=== PATIENT | male | born 1945 | race Two or more races ===

== ENCOUNTER → 2020-05-21 | Outpatient (CLI) | payer MEDICARE ==
--- NOTE | 2020-05-21 13:03 | XR ---
EXAMINATION TYPE: XR chest 2V DATE OF EXAM: 05/21/2020 COMPARISON: None HISTORY: 75-year-old male MRI clearance, history of open heart surgery TECHNIQUE: Frontal and lateral views FINDINGS: Heart normal size. Median sternotomy wires with post-CABG clips in the mediastinum. No retained epica rdial pacer leads are seen. No consolidation or pleural effusion. Suspect a calcified granuloma at th e posterior right base. IMPRESSION: Median sternotomy and post-CABG changes. No retained epicardial pacer leads seen. Clear for MRI.
== END | disposition home or self-care (01) ==
LOC: RADXRMAIN 11:40
PROVIDERS: ATTEND Orthopaedic Surgery
DX: Z01.818 Encounter for other preprocedural examination (principal); Z95.1 Presence of aortocoronary bypass graft
CPT/HCPCS: 71046

== ENCOUNTER → 2020-07-03 | Outpatient (CLI) | payer MEDICARE, BC ==
[2020-07-03 15:22] LABS: Basophils # (A) 0.1 k/uL (0-0.2); Basophils % (A) 1 %; Eosinophils # (A) 0.1 k/uL (0-0.7); Eosinophils % (A) 2 %; HCT 46.2 % (39.0-53.0); HGB 15.9 gm/dL (13.0-17.5); Lymphocytes # (A) 0.7 k/uL (1.0-4.8); Lymphocytes % (A) 12 %; MCH 29.6 pg (25.0-35.0); MCHC 34.4 g/dL (31.0-37.0); Monocytes # (A) 0.4 k/uL (0-1.0); Monocytes % (A) 7 %; Neutrophils # (A) 4.4 k/uL (1.3-7.7); Neutrophils % (A) 76 %; Platelet Count 173 k/uL (150-450); RBC 5.38 m/uL (4.30-5.90); RDW 13.3 % (11.5-15.5); WBC 5.7 k/uL (3.8-10.6)
[2020-07-03 15:30] LABS: Albumin 3.8 g/dL (3.5-5.0); Calcium 9.2 mg/dL (8.4-10.2); Potassium 5.1 mmol/L (3.5-5.1); Total Bilirubin 0.9 mg/dL (0.2-1.3); Total Protein 6.5 g/dL (6.3-8.2)
[2020-07-03 15:41] LABS: INR 0.9 (<1.2); Partial Thromboplastin Time 22.7 sec (22.0-30.0); Prothrombin Time 10.1 sec (9.0-12.0)
[2020-07-03 16:02] LABS: Appearance,Urine Clear (Clear); Bilirubin,Urine Negative (Negative); Blood,Urine Negative (Negative); Color,Urine Yellow; Glucose,Urine (UA) Negative (Negative); Ketones,Urine Negative (Negative); Leukocyte Esterase,Urine Negative (Negative); Nitrite,Urine Negative (Negative); PH, Urine 5.5 (5.0-8.0); Protein,Urine Negative (Negative); Specific Gravity,Urine 1.018 (1.001-1.035); Urobilinogen,Urine <2.0 mg/dL (<2.0)
== END | disposition home or self-care (01) ==
LOC: LABPAT 14:54
PROVIDERS: ATTEND Orthopaedic Surgery
DX: Z01.818 Encounter for other preprocedural examination (principal); Z01.812 Encounter for preprocedural laboratory examination; Z79.01 Long term (current) use of anticoagulants
CPT/HCPCS: 36415; 80053; 81003; 85025; 85610; 85730; 87070

== ENCOUNTER 2020-07-15 08:50 | Day surgery (SDC) | payer MEDICARE, BC ==
[2020-07-09 12:01] VITALS: BMI 41.5
[~2020-07-15 08:50] MED LIST: ACETAMINOPHEN TAB 500 MG TAB PO PRN; GABAPENTIN 300 MG CAP PO PRN; LIDOCAINE 1% (10MG/ML) FOR IV START INTRADERMA PRN; MELOXICAM 7.5 MG TAB PO PRN; MIDAZOLAM 2 MG/2 ML VIAL IV PRN; ROPIVACAINE 246.25 MG, EPINEPHrine 0.5 MG, KETOROLAC 30 MG, cloNIDine HCL/PF 80 MCG, WA... MISCELLANE PRN; TRANEXAMIC ACID 1,000 MG in SODIUM CHLORIDE 0.9% 100 ML IVPB PRN; ceFAZolin 3 GM in SODIUM CHLORIDE 0.9% 100 ML IVPB PRN; fentaNYL (PF) 50 MCG/ML 2 ML AMP IV PRN
[2020-07-15] MEDS ORDERED: ONDANSETRON 4 MG/2 ML VIAL ONE (09:18)
[2020-07-15] MEDS ORDERED: DEXAMETHASONE SOD PHOSPHATE 4 MG/ML 1 ML VIAL IV ONE (09:45)
[2020-07-15 10:09] LABS: Glucose,Whole Blood 125 mg/dL (75-99)
[2020-07-15] MEDS: LACTATED RINGERS 1,000 ML IV SCH (10:12)
[2020-07-15] MEDS ORDERED: TRANEXAMIC ACID 1,000 MG/10 ML VIAL ONE (11:16)
[2020-07-15] MEDS ORDERED: MIDAZOLAM 2 MG/2 ML VIAL ONE (11:16)
[2020-07-15] MEDS ORDERED: SODIUM CHLORIDE 0.9% 100 ML BAG ONE (11:16)
[2020-07-15] MEDS ORDERED: PROPOFOL 10 MG/ML 20 ML VIAL IV ONE (11:16)
[2020-07-15] MEDS ORDERED: fentaNYL (PF) 50 MCG/ML 2 ML AMP ONE (11:16)
[2020-07-15] MEDS ORDERED: ePHEDrine SULFATE/0.9% NACL/PF 50 MG/5 ML SYRINGE IV ONE (11:16)
[2020-07-15] MEDS ORDERED: ceFAZolin 3,000 MG in SODIUM CHLORIDE 0.9% IRRIGATIO 3,000 ML IRRIGATION ONE (11:53)
[2020-07-15] MEDS ORDERED: ROPIVACAINE 0.2%-NS ON-Q PUMP 1,090 MG, EMPTY PAIN BALL 1 EACH MISCELLANE PRN (12:31)
--- NOTE | 2020-07-15 12:33 | P.OP ---
Date of Procedure: 07/15/20 Preoperative Diagnosis: Severe osteoarthritis left knee Postoperative Diagnosis: Severe osteoarthritis left knee Procedure(s) Performed: Left total knee arthroplasty using [employer]aire patient specific guides Implants: Nina and Nephew Cruciate Retaining Journey II CR Oxinium Femoral Component size 6, left Nina & Nephew Journey Nonporous Tibial Baseplate size 7, left Nina & Nephew Journey II DEEP DISHED, XLPE Articular Insert, 11 mm, size 5-6 Nina & Nephew Doreen II Resurfacing Patellar Component, Oval, 32 mm All components were cemented using Palacose R bone cement. The articulation is Oxinium on polyethylene. Visionaire patient specific guides Anesthesia: spinal Surgeon: Cordell Doll Stiff Leg Derrick Operator #1: Stephanie Marroquin Estimated Blood Loss (ml): 30 Pathology: other (Bone and cartilage) Condition: stable Disposition: PACU Indications for Procedure: After failure of conservative treatment we discussed the surgical and nonsurgical treatment options at length. Patient wishes to proceed with a total knee arthroplasty. Complications specific to this procedure were discussed at length, including but not limited to infection, bleeding, stiffness, and nerve injury. Covid-19 was also discussed at length with the patient, and they are aware of the current policies and procedures. The patient was given the option of delaying surgery, but they elect to proceed knowing these risks. Patient is aware of all these complications and informed consent was obtained Operative Findings: The operative findings are consistent with severe osteoarthritis of the left knee Description of Procedure: Patient was seen in the preoperative area and the consent was reviewed and the operative site was marked with a skin marker. The patient verified the proc edure and the operative site. An adductor canal pain catheter was placed by anesthesia in the preoperative area. The patient was then brought to the operating room and given preoperative antibiotics intravenously. A gram of transexamic acid was given intravenously. A spinal anesthetic was administered by the anesthesia department. A tourniquet was placed on the upper thigh and the lower extremity was prepped with chlorhexidine and draped in usual sterile fashion. A universal timeout was then performed which confirmed the patient's name, surgical site, ALLERGIES, and consent. The lower extremity was then exsanguinated and tourniquet was inflated to 250 mmHg. A standard anterior midline approach to the knee was performed. The skin and subcutaneous tissue were sharply dissected down to the patellar tendon. A medial parapatellar arthrotomy was then performed. The knee was then extended, the patellar was everted, and the knee was again flexed. The infra-patellar fat pad was removed in order to enhance exposure. The anterior horns of both menisci were excised, and a release was performed to the posterior medial aspect of the knee. On gross visual inspection, there was complete loss of articular cartilage in the medial and patellofemoral joint spaces. There was also significant cartilage damage in the lateral compartment. There were multiple periarticular osteophytes globally about the knee. The patient specific guide was placed on the distal femur, and pinned in place. Using the patient specific guide, the distal femoral cut was performed. The cutting block was then removed and the cut was checked for symmetry. The spikes of the femoral block was then placed into the predrilled holes, and malleted into place. Two 45 mm pins were then placed into the fixation holes on the cutting block. An eitan wing was then used to ensure there would be no notching with the anterior cut. The anterior condyles were cut without notching. The anterior chord cut was then performed, followed by the posterior cut, posterior chamfer cut, and the anterior chamfer cut. The collateral ligaments were protected during the entire process. The cutting block was then removed. Any remaining bone and osteophytes were removed from the femur with a Rominger. The femoral canal was plugged with autologous bone. Attention was then directed to the tibia. The remaining ACL was removed with a Ronguer, and the tibia was then gently subluxed forward with a large bent knee retractor. Any remaining menisci were excised. The posterior lateral corner was cauterized in order to coagulate the lateral geniculate artery. The patient specific guide for the tibia was then placed and was held in place with pins. Pinholes were then placed for rotation of the tibial component as well. Proximal tibia was then cut and sized. The femoral trial was placed. A narrow saw blade was then used to remove the anterior intracondylar femoral bone. The CR notch trial was then placed. The tibial trial was placed with the appropriate-sized insert. The knee was able to fully extend and flex to 130 and was stable throughout all range of motion. The knee was then extended and the patella was everted. Patella was then measured, and then using an osteotomy guide, the patella was cut at the appropriate level. The patella was then measured and drilled and the patella trial was then placed. The knee was then taken through range of motion with the patella trial and the patella tracked normally using the no thumbs technique.. The knee was then extended patella trial was then removed and the patella was everted. Knee was then flexed and lug holes were drilled through the femoral trial and the femoral trial was then removed. The tibial was then re-exposed, and the tibial broach guide was then pinned in place after it was set for the appropriate rotation to allow for the most coverage without overhang. The tibia was then reamed and broached. The cut surfaces of bone were then irrigated with pulsatile lavage. The posterior structures were injected with the ropivacaine solution. The knee was also irrigated with Irrisept solution. The components were then opened, the cement was mixed, and the components were then cemented in place. The cement was allowed to harden with the knee in full extension. While the cement was hardening, the remaining soft tissues were then injected with a ropivacaine solution, which consisted of 246.25 mg of ropivacaine, 0.5 mg of epinephrine, 30 mg of Toradol, 80 g of clonidine, and 48.45 mL of sterile water, for a total of 100 mL of fluid injected. After the cemented hardened. The tourniquet was released, and hemostasis was obtained. A second gram of transexamic acid was given intravenously. The knee was again irrigated. The knee was again taken through range of motion and found to be stable throughout all range of motion of 0-130, and the patella tracked normally. The fascia was then closed with 0 Vicryl followed by #2 strata fix suture. The subcutaneous tissue was closed with 3-0 Vicryl and 3-0 strata fix. Exofin glue was used for the skin and placed with the knee in flexion. After the glue had dried, and Optafoam silver impregnated dressing was applied. The patient was then transferred to recovery room in stable condition. The operational assistant NOAH Zapata was required due the complexity surgery and the need for a skilled safety admin assistant. She assisted in positioning, draping, retraction, and closure of the wound.
--- NOTE | 2020-07-15 12:35 | P.ANPRN ---
Procedure Note - Anesthesia - Nerve Block Performed Left Adductor Canal Time Out Performed: Yes Date of Procedure: 07/15/20 Location of Patient: PreOp Indication: Acute Post-Operative Pain, Requested by Surgeon Specifically requested for management of pain by : Cordell Doll Sedation Type: Sedate with meaningful contact maintained Preparation: Sterile Prep, Sterile Dressing Position: Supine Catheter Depth at Skin (cm): 6 Catheter: Indwelling Needle Types: Pajunk Needle Gauge: 20 Ultrasound used to visualize needle placement: Yes Ultrasound used to observe medication spread: Yes Injectate: 0.5% Ropivacaine (see comment for volume) (30ml) Blood Aspirated: No Pain Paresthesia on Injection Noted: No Resistance on Injection: Normal
[2020-07-15] MEDS ORDERED: NA PHOS,M-B/NA PHOS,DI-BA 133 ML ENEMA RECTAL PRN (13:05)
[2020-07-15] MEDS ORDERED: bisacodyL 10 MG SUPP RECTAL PRN (13:05)
[2020-07-15] MEDS ORDERED: HYDROmorphone 0.5 MG/0.5 ML SYRINGE IVP PRN ×2 (13:05)
[2020-07-15] MEDS ORDERED: MAGNESIUM HYDROXIDE 2,400 MG/10 ML CUP PO PRN (13:05)
[2020-07-15] MEDS ORDERED: HYDROcodone/APAP 5-325MG 1 EACH TAB PO PRN ×2 (13:05)
[2020-07-15] MEDS ORDERED: ONDANSETRON 4 MG/2 ML VIAL IVP PRN (13:05)
[2020-07-15] MEDS ORDERED: NALOXONE 0.4 MG/ML 1 ML VIAL IV PRN (13:05)
[2020-07-15] MEDS ORDERED: HYDROmorphone 0.2 MG/1 ML SYRINGE IVP PRN (13:05)
--- NOTE | 2020-07-15 13:33 | XR ---
EXAMINATION TYPE: XR knee limited LT DATE OF EXAM: 07/15/2020 COMPARISON: NONE HISTORY: 75-year-old male evaluation for postoperative abnormality and alignment TECHNIQUE: 2 views FINDINGS: Images show placement of left total knee arthroplasty. Both distal femoral and proximal tibial compon ents of the prosthesis are well seated without periprosthetic fracture. Alignment grossly anatomic. S cattered soft tissue air as well as intra-articular air related to recent operation. Vascular calcifi cations. IMPRESSION: Uncomplicated postoperative appearance left total knee arthroplasty.
--- NOTE | 2020-07-15 15:28 | P.CONS ---
History of Present Illness - Reason for Consult Consult date: 07/15/20 - Chief Complaint Medical management s/p L TKA - History of Present Illness 75-year-old man with a history of CAD status post CABG, hypertension, hyperlipidemia, glaucoma, OMAR on CPAP, prediabetes presented for elective TKA of the left knee. Medicine consulted by orthopedic surgery for medical management. Patient has no complaints at this time, is well aware of his medications and takes them regularly, diligently. Patient's review of systems is negative for fever, chills, nausea, vomiting, chest pain, palpitations, abdominal pain, dyspnea, dysuria, dyschezia, weakness. Patient denies any pain at this time, does report some numbness following anesthesia. Review of Systems All Systems reviewed and pertinent positives and negatives noted in HPI, all other symptoms are negative Past Medical History Past Medical History: Coronary Artery Disease (CAD), Cancer, Heart Failure, Hyperlipidemia, Hypertension, Myocardial Infarction (CT), Osteoarthritis (OA), Prostate Disorder, Renal Disease, Sleep Apnea/CPAP/BIPAP Additional Past Medical History / Comment(s): glaucoma left eye,uses cpap,steroids Jun 2020,prostate CA 2009-radiation tx received no chemo Last Myocardial Infarction Date:: 2014? History of Any Multi-Drug Resistant Organisms: None Reported Past Surgical History: Coronary Bypass/CABG, Heart Catheterization, Heart Catheterization With Stent Additional Past Surgical History / Comment(s): CABG 2015-6 vessel,cysts removed rt kidney, total left knee jun 2019. Past Anesthesia/Blood Transfusion Reactions: No Reported Reaction Additional Past Anesthesia/Blood Transfusion Reaction / Comm: no known hx blood transfusion Date of Last Stent Placement:: unk Past Psychological History: No Psychological Hx Reported Smoking Status: Never smoker Past Alcohol Use History: Occasional Past Drug Use History: None Reported - Past Family History Mother Family Medical History: No Reported History Medications and Allergies Home Medications Medication Instructions Recorded Confirmed Type Aspirin 81 mg PO DAILY 07/09/20 07/15/20 History Atorvastatin Calcium [Lipitor] 40 mg PO DAILY 07/09/20 07/15/20 History Ezetimibe [Zetia] 10 mg PO DAILY 07/09/20 07/15/20 History Lisinopril [Prinivil] 10 mg PO QAM 07/09/20 07/15/20 History Metoprolol Succinate (ER) [Toprol 50 mg PO HS 07/09/20 07/15/20 History Xl] Leopold-3 Fatty Acids/Fish Oil [Fish 1 each PO DAILY 07/09/20 07/15/20 History Oil 1,000 mg Softgel] Timolol 0.5% Ophth Soln [Timoptic 1 drop LEFT EYE BID 07/09/20 07/15/20 History 0.5% Ophth Soln] Triamterene-Hctz 37.5-25Mg 1 cap PO QAM 07/09/20 07/15/20 History [Dyazide 37.5-25 Capsule] Allergies Allergy/AdvReac Type Severity Reaction Status Date / Time Iodine and Iodide Containing Allergy Rash/Hives Verified 07/15/20 09:45 Produc Physical Exam Osteopathic Statement: *. No significant issues noted on an osteopathic structural exam other than those noted in the History and Physical/Consult. Vitals: Vital Signs Temp Pulse Pulse Resp BP Pulse Ox 07/15/20 14:03 63 16 132/63 94 L 07/15/20 13:46 73 16 124/58 96 07/15/20 13:32 68 16 131/62 94 L 07/15/20 13:15 73 16 134/64 96 07/15/20 13:04 97.3 F L 74 16 146/63 94 L 07/15/20 10:18 57 L 16 124/70 99 07/15/20 09:45 97 F L 64 16 131/67 98 Intake and Output 07/15/20 07/15/20 07/15/20 06:59 14:59 22:59 Intake Total 951 Output Total 30 Balance 921 Intake: IV 951 Output: Estimated Blood Loss 30 Other: Weight 131.6 kg Gen: awake, alert HEENT: normocephalic, atraumatic, good hearing acuity, moist mucous membranes Resp: good air exchange, breathing comfortably with no accessory muscle use CVS: good distal perfusion x 4, GI: soft, NTTP, ND : no SPT, no CVAT, wood catheter not present MSK: no pitting edema, no clubbing Neuro: non-focal, moving all extremities Psych: cooperative, euthymic mood Results CBC & Chem 7: 07/15/20 09:54 Labs: Abnormal Lab Results - Last 24 Hours (Table) 07/15/20 Range/Units 09:50 POC Glucose (mg/dL) 125 H (75-99) mg/dL Assessment and Plan Assessment: 1. CAD status post CABG 2. Hypertension 3. Hyperlipidemia 4. OMAR on CPAP 5. Glaucoma 6. Prediabetes 7. Left TKA next 75-year-old man with medical history of CAD, hypertension, hyperlipidemia, glaucoma, OMAR on CPAP, prediabetes presented for left TKA, elective procedure. Medicine consulted by orthopedic surgery service for medical management. All medical conditions are stable at this time, patient doing well post op. Plan: Continue with pain control and DVT PPx per primary team PT/OT s/p OR Anesthesia to monitor ropivicaine pump patient has diet controlled pre-DM, will monitor sugars closely, but no SSI warranted at this time as an outpatient, may benefit from metformin given pre-DM and obesity continue home CPAP if available Full Code
[2020-07-15] MEDS: SODIUM CHLORIDE 0.9% 1,000 ML IV SCH (20:28)
[2020-07-15] MEDS: ceFAZolin 3 GM in SODIUM CHLORIDE 0.9% 100 ML IVPB SCH (20:28)
[2020-07-15] MEDS: lisinopriL 10 MG TAB PO SCH (20:28)
[2020-07-15] MEDS: ASPIRIN 325 MG TAB PO SCH (20:29)
[2020-07-15] MEDS: TIMOLOL 0.5% OPHTH DROPS 5 ML BTL LEFT EYE SCH (20:32)
[2020-07-15] MEDS ORDERED: ATORVASTATIN 40 MG TAB PO SCH (21:00)
[2020-07-15] MEDS ORDERED: METOPROLOL SUCCINATE (ER) 50 MG TAB.ER.24H PO SCH (21:00)
[2020-07-15] MEDS ORDERED: SENNOSIDES-DOCUSATE SODIUM 1 EACH TAB PO SCH (21:00)
[2020-07-16] MEDS: ceFAZolin 3 GM in SODIUM CHLORIDE 0.9% 100 ML IVPB SCH (03:46)
[2020-07-16] MEDS: SODIUM CHLORIDE 0.9% 1,000 ML IV SCH (03:47)
[2020-07-16] MEDS: LACTATED RINGERS 1,000 ML IV SCH (04:46)
[2020-07-16 06:45] LABS: Basophils % (A) 0 %; Eosinophils # (A) 0.1 k/uL (0-0.7); Eosinophils % (A) 1 %; HCT 41.7 % (39.0-53.0); HGB 14.3 gm/dL (13.0-17.5); Lymphocytes # (A) 0.5 k/uL (1.0-4.8); Lymphocytes % (A) 5 %; MCH 29.4 pg (25.0-35.0); MCHC 34.2 g/dL (31.0-37.0); Mean Platelet Volume 7.5; Monocytes # (A) 0.5 k/uL (0-1.0); Monocytes % (A) 6 %; Neutrophils # (A) 7.6 k/uL (1.3-7.7); Neutrophils % (A) 87 %; Platelet Count 150 k/uL (150-450); RBC 4.85 m/uL (4.30-5.90); RDW 13.4 % (11.5-15.5); WBC 8.7 k/uL (3.8-10.6)
--- NOTE | 2020-07-16 07:09 | P.PN ---
Progress Note - Text Postoperative day # 1 status post total knee arthroplasty, on adductor canal perineural catheter placed for postoperative analgesia. Ropivacaine 0.2% 8 mL per hour through ON-Q pump continuous infusion. Pain is well controlled. On visual analog scale 0/10 Patient is taking PRN oral pain medications. Not requiring much. Catheter site: Looks Ok. There is no erythema or tenderness. Continue with the current pain management plan and will follow.
[2020-07-16] MEDS: lisinopriL 10 MG TAB PO SCH (07:49)
[2020-07-16] MEDS: ASPIRIN 325 MG TAB PO SCH (07:49)
[2020-07-16] MEDS: TIMOLOL 0.5% OPHTH DROPS 5 ML BTL LEFT EYE SCH (07:50)
--- NOTE | 2020-07-16 08:26 | P.DS ---
Providers Expected date of discharge: 07/16/20 Attending physician: Cordell Doll Consults: 07/15/20 13:05 Consult Physician Routine Consulting Provider: Carmella Correia Consult Reason/Comments: medical management Do you want consulting provider notified?: Yes Primary care physician: Luis Miguel Hernandez - Discharge Diagnosis(es) (1) S/P total knee arthroplasty Current Visit: Yes Status: Acute (2) Osteoarthritis of left knee Current Visit: Yes Status: Acute Hospital Course: This is a 75-year-old male with known history of degenerative arthritis of the left knee. The patient presented for evaluation as an outpatient. After discussion and consideration patient elects to proceed with total knee arthroplasty. The patient is seen preoperatively by Dr. Doll and medically cleared for surgery by their primary care physician. Patient is admitted to [facility] on 07/15/2020 for total knee arthroplasty. The procedure is performed without complication or sequelae. The patient is doing well postoperatively. Labs and vital signs are stable on day of discharge. On day of discharge patient's knee incision is healing well. There is minimal erythema. There is no drainage noted at this time. There is minimal soft tissue swelling to the knee. Patient has full foot and ankle motion without difficulty or pain. Calf is soft and nontender to palpation. Neurovascular status to the left lower extremity is intact. Patient is discharged home in good condition. Opioid start talking form is reviewed and signed. Please see med rec for accurate list of home medications. Plan - Discharge Summary Discharge Rx Participant: Yes New Discharge Prescriptions: New Aspirin 325 mg PO BID #60 tab HYDROcodone/APAP 5-325MG [Blackwell 5-325] 1 - 2 tab PO Q6HR PRN #48 tab PRN Reason: Pain Sennosides [Senokot] 2 tab PO DAILY PRN #60 tablet PRN Reason: Constipation No Action Aspirin 81 mg PO DAILY Atorvastatin Calcium [Lipitor] 40 mg PO DAILY Triamterene-Hctz 37.5-25Mg [Dyazide 37.5-25 Capsule] 1 cap PO QAM Timolol 0.5% Ophth Soln [Timoptic 0.5% Ophth Soln] 1 drop LEFT EYE BID Metoprolol Succinate (ER) [Toprol Xl] 50 mg PO HS Lisinopril [Prinivil] 10 mg PO QAM Ezetimibe [Zetia] 10 mg PO DAILY [place]-3 Fatty Acids/Fish Oil [Fish Oil 1,000 mg Softgel] 1 each PO DAILY Discharge Medication List Aspirin 81 mg PO DAILY 07/09/20 [History] Atorvastatin Calcium [Lipitor] 40 mg PO DAILY 07/09/20 [History] Ezetimibe [Zetia] 10 mg PO DAILY 07/09/20 [History] Lisinopril [Prinivil] 10 mg PO QAM 07/09/20 [History] Metoprolol Succinate (ER) [Toprol Xl] 50 mg PO HS 07/09/20 [History] [place]-3 Fatty Acids/Fish Oil [Fish Oil 1,000 mg Softgel] 1 each PO DAILY 07/09/20 [History] Timolol 0.5% Ophth Soln [Timoptic 0.5% Ophth Soln] 1 drop LEFT EYE BID 07/09/20 [History] Triamterene-Hctz 37.5-25Mg [Dyazide 37.5-25 Capsule] 1 cap PO QAM 07/09/20 [History] Aspirin 325 mg PO BID #60 tab 07/16/20 [Rx] HYDROcodone/APAP 5-325MG [Blackwell 5-325] 1 - 2 tab PO Q6HR PRN #48 tab 07/16/20 [Rx] Sennosides [Senokot] 2 tab PO DAILY PRN #60 tablet 07/16/20 [Rx] Follow up Appointment(s)/Referral(s): Cordell Doll DO [Doctor of Osteopathic Medicine] - 2 Weeks Activity/Diet/Wound Care/Special Instructions: Weightbearing as tolerated with a walker. CPM 5-6h daily. Leave dressing intact. May be removed by home care nurse or by patient in 10 days. May shower with dressing on. Recommend use of compression stockings daily until follow up to help prevent swelling and blood clots. May remove at night before sleeping. Please take aspirin 325mg twice daily for 30 days to prevent blood clots. Please follow up with [facility] and call with any questions or concerns, . Discharge Disposition: HOME WITH HOME HEALTH SERVICES
[2020-07-16] MEDS ORDERED: lisinopriL 10 MG TAB PO SCH (09:00)
[2020-07-16] MEDS ORDERED: TRIAMTERENE-HCTZ 37.5-25MG 1 EACH CAP PO SCH (09:00)
[2020-07-16] MEDS ORDERED: EZETIMIBE 10 MG TAB PO SCH (09:00)
[2020-07-16] MEDS ORDERED: ATORVASTATIN 40 MG TAB PO SCH (09:00)
[2020-07-16] MEDS ORDERED: MELOXICAM 7.5 MG TAB PO SCH (09:00)
--- NOTE | 2020-07-16 10:16 | P.PN ---
Subjective Progress Note Date: 07/16/20 No new complaints, patient doing well, medical conditions stable Objective - Vital Signs Vital signs: Vital Signs Temp 97.7 F 07/16/20 01:32 Pulse 75 07/16/20 01:32 Resp 16 07/16/20 01:32 BP 118/66 07/16/20 01:32 Pulse Ox 96 07/16/20 01:32 Intake & Output 07/15/20 07/16/20 07/16/20 18:59 06:59 18:59 Intake Total 951 Output Total 30 Balance 921 Weight 131.6 kg Intake: IV 951 Output: Estimated Blood Loss 30 Other: # Voids 1 - Exam Gen: awake, alert HEENT: normocephalic, atraumatic, good hearing acuity, moist mucous membranes Resp: good air exchange, breathing comfortably with no accessory muscle use CVS: good distal perfusion x 4, GI: soft, NTTP, ND : no SPT, no CVAT, wood catheter not present MSK: no pitting edema, no clubbing Neuro: non-focal, moving all extremities Psych: cooperative, euthymic mood - Labs CBC & Chem 7: 07/16/20 06:29 07/15/20 09:54 Labs: Abnormal Lab Results - Last 24 Hours (Table) 07/16/20 Range/Units 06:29 Lymphocytes # 0.5 L (1.0-4.8) k/uL Assessment and Plan Assessment: 1. CAD status post CABG 2. Hypertension 3. Hyperlipidemia 4. OMAR on CPAP 5. Glaucoma 6. Prediabetes 7. Left TKA next 75-year-old man with medical history of CAD, hypertension, hyperlipidemia, glaucoma, OMAR on CPAP, prediabetes presented for left TKA, elective procedure. Medicine consulted by orthopedic surgery service for medical management. All medical conditions are stable at this time, patient doing well post op. Plan: Continue with pain control and DVT PPx per primary team PT/OT s/p OR Anesthesia to monitor ropivicaine pump patient has diet controlled pre-DM, will monitor sugars closely, but no SSI warranted at this time as an outpatient, may benefit from metformin given pre-DM and obesity continue home CPAP if available Full Code Okay for discharge from medical perspective. Continue all home meds, no changes made.
[2020-07-16 10:41] VITALS: BP 127/73; PULSE 63; RESP 18; TEMP 97.4
== END 2020-07-16 12:50 | disposition home health service (06) ==
LOC: OR 08:50 → 4SSUR 13:00 → OR 07-16 12:50
PROVIDERS: ATTEND Orthopaedic Surgery
DX: M17.12 Unilateral primary osteoarthritis, left knee (principal); M25.762 Osteophyte, left knee; I25.10 Atherosclerotic heart disease of native coronary artery without angina pectoris; E78.5 Hyperlipidemia, unspecified; G47.33 Obstructive sleep apnea (adult) (pediatric); I25.2 Old myocardial infarction; I13.0 Hypertensive heart and chronic kidney disease with heart failure and stage 1 through stage 4 chronic kidney disease, or unspecified chronic kidney disease; I50.9 Heart failure, unspecified; E11.22 Type 2 diabetes mellitus with diabetic chronic kidney disease; N18.2 Chronic kidney disease, stage 2 (mild); H40.9 Unspecified glaucoma; Z99.89 Dependence on other enabling machines and devices; Z91.041 Radiographic dye allergy status; Z95.1 Presence of aortocoronary bypass graft; Z85.46 Personal history of malignant neoplasm of prostate; K21.9 Gastro-esophageal reflux disease without esophagitis; Z79.899 Other long term (current) drug therapy; H91.90 Unspecified hearing loss, unspecified ear; Z98.890 Other specified postprocedural states; Z83.3 Family history of diabetes mellitus; Z87.891 Personal history of nicotine dependence; Z92.3 Personal history of irradiation; Z82.49 Family history of ischemic heart disease and other diseases of the circulatory system; Z95.5 Presence of coronary angioplasty implant and graft; Z79.82 Long term (current) use of aspirin
CPT/HCPCS: 97110; 97161; 64448; 76942; 88305; 84132; 85025; 88311; 73560; 27447; C1713; C1776; J2250; J0171; J1100; J0690 ×3; J2405; J3010; J1885; J2795 ×2; J2704; J0735